=== PATIENT | female | born 1990 | race Caucasian/White ===

== ENCOUNTER 2021-05-21 15:25 | Emergency (ER) | payer BC ==
[~2021-05-21] VITALS: Ht 162.6 cm; Wt 104.3 kg
[~2021-05-21 15:25] MED LIST: AMOXICILLIN 50500 M1 PO; AUGMENTIN 875875 MG PO; AZITHROMYCIN250 MG PO; CALCITRATE + V1 EACH PO; CALTRATE 600600 MG PO; CARVEDILOL12.5 MG PO; CEFUROXIME500 MG PO; COUMADIN 5 MG TA5 M1 PO; COUMADIN 5 MG TA5 MG PO; ENOXAPARIN100 MG/11 SUBQ; ENOXAPARIN40 MG/0.1 SUBQ; ENOXAPARIN60 MG/0.6 SQ; LISINOPRIL5 MG PO; MUCINEX600 MG PO; NOHOMEMEDICATIONS; PRENATAL PO; TYLENOL325 MG PO; ULTRAM 50MG TAB50 MG PO; ZOFRAN4 MG PO
[2021-05-21] MEDS ORDERED: IBU800 MG PO (15:42)
[2021-05-21 16:12] LABS: ABSOLUTE NEUTROPHILS 8.3 thou/uL (1.4-8.2); BASOPHILS 0.3 % (0.0-2.0); HEMATOCRIT 42.2 % (37.0-47.0); MCH 29.3 pg (26.0-34.0); MCHC 33.3 g/dL (28.0-37.0); MCV 88.1 fL (80.0-100.0); MONOCYTES 6.3 % (1.0-8.0); PLATELET COUNT 359 thou/uL (150-400); POLYS 78.4 % (36.0-66.0); RBC 4.78 mil/uL (4.20-5.00); RDW 12.8 % (10.5-14.5); WBC 10.6 thou/uL (4.0-11.0)
[2021-05-21 16:12] LABS: URINE BLOOD 2+ (Negative); URINE CLARITY CLEAR; URINE COLOR YELLOW; URINE GLUCOSE-RANDOM* NEGATIVE (Negative); URINE KETONES 3+ (Negative); URINE NITRITE-REFLEX NEGATIVE (Negative); URINE PROTEIN (DIPSTICK) NEGATIVE (Negative); URINE SPECIFIC GRAVITY 1.025 (1.005-1.035); URINE UROBILINOGEN 0.2 E.U./dl (0.2-1.0)
[2021-05-21 16:13] LABS: ICTOTEST (BILI CONFIRMATORY) Negative (Negative); URINE BILIRUBIN NEGATIVE (Negative); URINE LEUKOCYTES-REFLEX 2+ (Negative)
[2021-05-21 16:15] LABS: CALCIUM 8.9 mg/dL (8.5-10.1); CREATININE 0.7 mg/dL (0.6-1.0); POTASSIUM 3.8 mmol/L (3.5-5.1)
[2021-05-21 16:17] LABS: URINE REDUCING SUBSTANCE NEGATIVE
[2021-05-21 16:21] LABS: ALBUMIN 3.7 g/dL (3.4-5.0); TOTAL BILIRUBIN 0.8 mg/dL (0.2-1.0); TOTAL PROTEIN 6.9 g/dL (6.4-8.2)
[2021-05-21 16:29] LABS: BACTERIA-REFLEX 1-9 Few /HPF (None Seen); CASTS None Seen /LPF (None Seen); CRYSTALS None Seen /LPF (None Seen); MUCUS 0-3 Light strn/LPF (None Seen); SQUAMOUS 4-10 Moderate /LPF (0-3); URINE RBC 3-10 Few /HPF (NONE SEEN); URINE WBC-REFLEX 6-15 Few /HPF (0-5)
[2021-05-21] MEDS ORDERED: NORCO5 PO (18:18)
[2021-05-21 18:21] VITALS: BP 127/84
[2021-05-21] MEDS ORDERED: ZOFRAN ODT4 MG PO (18:29)
[2021-05-22] MEDS ORDERED: PROMS25 WY RECTAL (20:58)
[2021-05-22] MEDS ORDERED: CARAFATE1 GM PO (20:58)
[2021-05-22] MEDS ORDERED: PEPCID20 MG PO (20:58)
[2021-05-22] MEDS ORDERED: ZOFRAN ODT4 MG PO (20:58)
== END 2021-05-21 18:31 | disposition home or self-care (01) ==
LOC: ER 15:25
PROVIDERS: Emergency Medicine
DX: K29.70 Gastritis, unspecified, without bleeding (principal); R10.13 Epigastric pain; Z79.899 Other long term (current) drug therapy

== ENCOUNTER 2021-05-22 17:34 | Emergency (ER) | payer BC ==
[~2021-05-22] VITALS: Ht 162.6 cm; Wt 104.3 kg
[~2021-05-22 17:34] MED LIST changes: +IBU800 MG PO; +NORCO5 PO; +ZOFRAN ODT4 MG PO
[2021-05-22 17:51] LABS: URINE BLOOD TRACE (Negative); URINE CLARITY CLEAR; URINE COLOR YELLOW; URINE GLUCOSE-RANDOM* NEGATIVE (Negative); URINE KETONES 3+ (Negative); URINE NITRITE-REFLEX NEGATIVE (Negative); URINE PROTEIN (DIPSTICK) TRACE (Negative); URINE UROBILINOGEN 0.2 E.U./dl (0.2-1.0)
[2021-05-22 17:57] LABS: URINE LEUKOCYTES-REFLEX 1+ (Negative)
[2021-05-22 17:59] LABS: SQUAMOUS 0-3 Few /LPF (0-3)
[2021-05-22 18:02] LABS: ICTOTEST (BILI CONFIRMATORY) Negative (Negative)
[2021-05-22 18:06] LABS: BACTERIA-REFLEX >30 Many /HPF (None Seen); CASTS None Seen /LPF (None Seen); MUCUS >6 Heavy strn/LPF (None Seen); URINE BILIRUBIN NEGATIVE (Negative); URINE RBC 1-2 Rare /HPF (NONE SEEN); URINE WBC-REFLEX 0-5 Rare /HPF (0-5)
[2021-05-22 18:08] LABS: CRYSTALS None Seen /LPF (None Seen)
[2021-05-22 18:16] LABS: ABSOLUTE NEUTROPHILS 8.6 thou/uL (1.4-8.2); BASOPHILS 0.3 % (0.0-2.0); EOSINOPHILS 0.4 % (0.0-3.0); HEMATOCRIT 41.7 % (37.0-47.0); HEMOGLOBIN 13.8 gm/dL (12.0-15.0); MCH 29.2 pg (26.0-34.0); MCHC 33.2 g/dL (28.0-37.0); MONOCYTES 5.6 % (1.0-8.0); PLATELET COUNT 356 thou/uL (150-400); POLYS 78.7 % (36.0-66.0); RBC 4.73 mil/uL (4.20-5.00)
[2021-05-22 18:30] LABS: CALCIUM 9.2 mg/dL (8.5-10.1); CREATININE 0.6 mg/dL (0.6-1.0); POTASSIUM 3.8 mmol/L (3.5-5.1)
[2021-05-22 18:36] LABS: ALBUMIN 3.7 g/dL (3.4-5.0); TOTAL BILIRUBIN 0.8 mg/dL (0.2-1.0); TOTAL PROTEIN 6.8 g/dL (6.4-8.2)
[2021-05-22 20:57] VITALS: BP 123/69
[2021-05-22] MEDS ORDERED: PEPCID20 MG PO (20:58)
[2021-05-22] MEDS ORDERED: ZOFRAN ODT4 MG PO (20:58)
[2021-05-22] MEDS ORDERED: CARAFATE1 GM PO (20:58)
[2021-05-22] MEDS ORDERED: PROMS25 WY RECTAL (20:58)
== END 2021-05-22 21:09 | disposition home or self-care (01) ==
LOC: ER 17:34
PROVIDERS: Nurse Practitioner Family
DX: K29.70 Gastritis, unspecified, without bleeding (principal); E86.0 Dehydration; Z79.899 Other long term (current) drug therapy; Z98.890 Other specified postprocedural states